=== PATIENT | female | born 1990 | race Caucasian/White ===

== ENCOUNTER 2017-02-17 20:14 | Emergency (ER) | payer SELFPAY ==
[2017-02-17 22:09] VITALS: BP 130/84
== END 2017-02-17 22:05 | disposition home or self-care (01) ==
LOC: ED 20:14
DX: S82.402A Unspecified fracture of shaft of left fibula, initial encounter for closed fracture (principal); I10 Essential (primary) hypertension; W17.89XA Other fall from one level to another, initial encounter; Y93.89 Activity, other specified; Y92.89 Other specified places as the place of occurrence of the external cause; Y99.8 Other external cause status
CPT/HCPCS: Q0092